=== PATIENT | female | born 1950 | race Caucasian/White ===

== ENCOUNTER 2022-04-29 08:53 | Outpatient (CLI) | payer MEDICARE, BC | END 2022-04-29 08:54 | disposition home or self-care (01) | LOC: CSHMAMMO 08:53 | PROVIDERS: ATTEND Internal Medicine | DX: Z13.820 Encounter for screening for osteoporosis (principal); R92.8 Other abnormal and inconclusive findings on diagnostic imaging of breast; Z78.0 Asymptomatic menopausal state; M85.851 Other specified disorders of bone density and structure, right thigh | CPT/HCPCS: 77066; 77080; G0279 ==

== ENCOUNTER 2024-03-21 12:47 | Outpatient (CLI) | payer MEDICARE, BC | END 2024-03-21 12:48 | disposition home or self-care (01) | LOC: CSHRAD 12:47 | PROVIDERS: ATTEND Internal Medicine | DX: R06.02 Shortness of breath (principal) | CPT/HCPCS: 71046 ==